=== PATIENT | female | born 1945 | race Caucasian/White ===

== ENCOUNTER 2017-09-22 04:54 | Inpatient (IN) | payer OTHER ==
[2017-09-03 12:49] VITALS: BMI 29.0
--- NOTE | 2017-09-03 13:19 | PAT Medication Instructions ---
Service Date Sep 03, 2017. Current Home Medication List Albuterol Hfa (Ventolin Hfa), Unknown Dose INH UD PRN for ASTHMA Ascorbic Acid (Vitamin C), 1 TAB PO QAM Aspirin (Aspir-81), 1 TAB PO HS Cholecalciferol (Vitamin D3), 5,000 INTERUNIT PO QAM Citalopram Hydrobromide (Citalopram Hydrobromide), 10 MG PO HS Coenzyme Q10 (Ubidecarenone) (Co Q-10), 1 TAB PO QAM Cyanocobalamin (Vitamin B-12), 2,500 MCG SL 5XWK Diltiazem Hcl Ext Rel (Tiazac), 240 MG PO HS Dtduoaflczs-Cdzfxabaywn-Hkvzuq (Glucosamine Chondroitin M), 2 TAB PO QAM Levothyroxine Sodium (Synthroid), 100 MCG PO QAM Naproxen (Aleve), 220 MG PO QAM Rosuvastatin Calcium (Crestor), 10 MG PO Q2D Tocopheryl Acet,Dl-Alpha (Vitamin E), 200 INTERUNIT PO QAM Vitamin A-Beta Carotene (Vitamin A), 1 TAB PO QAM [Essential Multivit], 1 TAB PO QAM Medication Instructions For Your Scheduled Surgery - Hold the following medications 2 weeks prior to surgery: Tocopheryl Acet,Dl-Alpha (Vitamin E), 200 INTERUNIT PO QAM Yhgoqcvevly-Zmjckytyuae-Csrcqh (Glucosamine Chondroitin M), 2 TAB PO QAM Coenzyme Q10 (Ubidecarenone) (Co Q-10), 1 TAB PO QAM - Hold the following medications 7 days prior to surgery per surgeon's instructions: Naproxen (Aleve), 220 MG PO QAM [Essential Multivit], 1 TAB PO QAM - Hold the following medications the morning of surgery: Ascorbic Acid (Vitamin C), 1 TAB PO QAM Cholecalciferol (Vitamin D3), 5,000 INTERUNIT PO QAM Vitamin A-Beta Carotene (Vitamin A), 1 TAB PO QAM Cyanocobalamin (Vitamin B-12), 2,500 MCG SL 5XWK - Take the following medications the morning of surgery with a sip of water OTHERWISE NOTHING TO EAT OR DRINK AFTER MIDNIGHT: Albuterol Hfa (Ventolin Hfa), Unknown Dose INH UD PRN for ASTHMA (use if needed ; BRING TO HOSPITAL) Levothyroxine Sodium (Synthroid), 100 MCG PO QAM - Take the following medications as scheduled the night before surgery: Albuterol Hfa (Ventolin Hfa), Unknown Dose INH UD PRN for ASTHMA Citalopram Hydrobromide (Citalopram Hydrobromide), 10 MG PO HS Diltiazem Hcl Ext Rel (Tiazac), 240 MG PO HS Aspirin (Aspir-81), 1 TAB PO HS Rosuvastatin Calcium (Crestor), 10 MG PO Q2D If you have any questions please call us at [phone] or [phone] or [phone]
--- NOTE | 2017-09-03 13:57 | DIAGNOSTIC IMAGING REPORT ---
CHEST 2 VIEWS ROUTINE CLINICAL HISTORY: Preoperative chest COMPARISON STUDY: 01/21/2013 FINDINGS: The heart is normal in size. There is aortic tortuosity. There is been failure. No focal pulmonary consolidation. There are no pleural effusions. There is an air-containing retrocardiac opacity consistent with a hiatal hernia.[ IMPRESSION: No active disease in the chest. Electronically signed by: Rajinder Vasquez M.D. 09/03/2017 1:56 PM Dictated Date/Time: 09/03/2017 1:55 PM
[2017-09-03 14:28] LABS: URINE APPEARANCE CLEAR (CLEAR); URINE BILIRUBIN NEG (NEG); URINE COLOR DK YELLOW; URINE EPITHELIAL CELL AUTO 20-30 /lpf (0-5); URINE NITRITE NEG (NEG); URINE SPECIFIC GRAVITY 1.021 (1.000-1.030); UROBILINOGEN NEG (NEG)
[2017-09-03 14:32] LABS: PROTHROMBIN TIME (PATIENT) 10.5 SECONDS (9.0-12.0)
[2017-09-03 14:32] LABS: MANUAL MICROSCOPIC REQUIRED? NO; REVIEW REQ? NO
[2017-09-04 06:11] LABS: ESTIMATED AVERAGE GLUCOSE 117 mg/dl; HA1C FLAG Normal (Normal)
--- NOTE | 2017-09-04 15:16 | HISTORY & PHYSICAL EXAMINATION ---
DATE OF ADMISSION: 09/22/2017 CHIEF COMPLAINT: Right hip pain. HISTORY OF PRESENT ILLNESS: Ms. Thibodeaux is a 72-year-old female with a 1-year history of right hip pain. The patient rates her pain as 6-7/10. She has pain with her daily activities. She has limited standing and walking tolerance. Pain is worse with weightbearing. The patient has had physical therapy and anti-inflammatories without relief. She has failed conservative treatment and is scheduled for right hip replacement. PAST MEDICAL HISTORY: Hypertension, hypercholesterolemia, thyroid disease, asthma/COPD, and acid reflux. She denies heart disease, diabetes or DVT. PAST SURGICAL HISTORY: ORIF of right ankle, tubal ligation, and left FERNANDO. SOCIAL HISTORY: The patient denies alcohol or tobacco use. She lives in a single story home. She lives alone and is retired. FAMILY HISTORY: Negative for DVT. MEDICATIONS: Diltiazem 240 mg daily, aspirin 81 mg daily, levothyroxine 100 mcg daily, Crestor 10 mg every other day, citalopram 20 mg half tablet daily, glucosamine chondroitin, vitamin E, CoQ-10, vitamin C, multivitamin, vitamin D3, vitamin B12, omeprazole 20 mg daily, and Naprosyn 500 mg daily. ALLERGIES: PENICILLIN, CECLOR, BENADRYL, AND SULFA. REVIEW OF SYSTEMS: See HPI. Ten other systems reviewed, all negative. PHYSICAL EXAMINATION: VITAL SIGNS: Height 5 feet 3 inches, weight 170 pounds and BMI is 30. GENERAL: This is a well-developed and well-nourished female, who is alert and oriented x3. Mood and affect are appropriate. HEENT: Normocephalic and atraumatic. Mucous membranes are moist and intact. NECK: Supple without lymphadenopathy. HEART: Regular rate and rhythm without murmurs, rubs or gallops. LUNGS: Clear to auscultation without wheezes or rhonchi. ABDOMEN: Soft and nontender. Bowel sounds are equal and active. EXTREMITIES: No ecchymosis, redness or warmth. Thigh and calf are soft and nontender. Range of motion of the right hip is decreased and reproduces pain in the groin. She is neurovascularly intact with +5/5 strength. She has some moderate tenderness at her trochanteric bursa. Otherwise, neurovascularly intact. X-RAY EXAMINATION: AP views of the pelvis show joint space narrowing and osteophyte formation with cystic formation of the right hip. IMPRESSION: Degenerative joint disease, right hip. PLAN: The patient will be admitted for a right total hip arthroplasty. We will plan on aspirin for DVT prophylaxis. The patient is requesting a late morning surgery time. She is going to use [facility] for home physical therapy. KONG
[~2017-09-22] VITALS: Ht 160 cm; Wt 76.4 kg
[2017-09-22] VITALS (10 sets, daily range): BP systolic 108–145; BP diastolic 62–87; PULSE 67–98; TEMP 36.4–36.9; O2SAT 93–100; Ht 160 cm; Wt 76.4 kg
[~2017-09-22 04:54] MED LIST: ASCO500T3 PO; ASPI-232 PO; CHOL1000 PO; CITA20TA4 PO; COEN100C3 PO; CYAN10005 SL; DILT-115 PO; GLUCTAB54 PO; LEVO100T PO; NAPR1TAB9 PO; ROSU5TAB PO; VITATAB19 PO; VNTHFA/IN INH; VTME100 PO; [UNRECOGNIZED DRUG - OTHER] PO
[2017-09-22] MEDS ORDERED: DEXAMETHASONE 4 MG TAB PO SCH (06:00)
[2017-09-22] MEDS ORDERED: LACTATED RINGER'S 1000ML IV SCH (06:00)
[2017-09-22] MEDS ORDERED: CLINDAMYCIN 600 MG/54 ML D5W IV SCH (06:00)
[2017-09-22] MEDS ORDERED: LACTATED RINGER'S 1000ML 1,000 ML IV SCH (06:00)
[2017-09-22] MEDS ORDERED: METOCLOPRAMIDE HCL 10 MG TAB PO SCH (06:00)
[2017-09-22] MEDS ORDERED: FAMOTIDINE 20 MG TAB PO SCH (06:00)
[2017-09-22] MEDS ORDERED: ACETAMINOPHEN 500 MG TAB PO SCH (06:00)
[2017-09-22] MEDS ORDERED: ROPIVACAINE 5MG/ML 30 ML 150 MG, BUPIVACAINE 0.5% MPF INJ 30 ML, EpINEphrine HCL INJ 0.... INFIL SCH ×8 (06:00)
[2017-09-22] MEDS ORDERED: LACTATED RINGER'S 1000ML 500 ML IV ONE (06:00)
[2017-09-22] MEDS ORDERED: GABAPENTIN 300 MG CAP PO SCH (06:00)
[2017-09-22] MEDS: TRANEXAMIC ACID INJ 1,000 MG in SYRINGE 0 ML IV SCH ×2 (06:30→06:42)
[2017-09-22] MEDS ORDERED: BUPIVACAINE 0.5 % 5 MG/1 ML PF 10ML VIAL ONE (06:35)
[2017-09-22] MEDS ORDERED: MIDAZOLAM HCL 1 MG/ML 2ML VIAL ONE (06:41)
[2017-09-22] MEDS ORDERED: PROPOFOL IV EMULSION 10 MG/ML 20 ML VIAL IV ONE ×2 (06:41→07:25)
[2017-09-22] MEDS ORDERED: LIDOCAINE HCL 2% 2 ML VIAL (20MG/ML) ONE (06:41)
[2017-09-22] MEDS ORDERED: FENTANYL CITRATE INJ 50 MCG/1 ML 2 ML VIAL ONE (06:41)
[2017-09-22] MEDS ORDERED: ONDANSETRON INJ 2 MG/ML 2 ML VIAL ONE (06:41)
[2017-09-22] MEDS ORDERED: BACITRACIN 50000 UNIT VIAL ONE (06:55)
[2017-09-22] MEDS ORDERED: ORTHO JOINT ANESTHETIC ONE (06:55)
[2017-09-22] MEDS ORDERED: POVIDONE-IODINE OP SOLN 30 ML BTL ONE (06:55)
--- NOTE | 2017-09-22 07:01 | History & Physical Bridge Note ---
H&P Re-Evaluation Bridge Note: I have examined the patient, reviewed the History & Physical and in the interval since the performance of the History & Physical I have noted the following changes of clinical significance: No changes noted
[2017-09-22] MEDS ORDERED: EpHEDrine SULFATE 50MG/5ML SYR ONE (07:25)
[2017-09-22] MEDS ORDERED: ONDANSETRON INJ 2 MG/ML 2 ML VIAL IV PRN ×2 (07:30→08:30)
[2017-09-22] MEDS ORDERED: ATROPINE SULFATE 0.1 MG/ML 5ML SYR IV PRN (07:30)
[2017-09-22] MEDS ORDERED: EpHEDrine SULFATE INJ 50 MG/ML AMP IV PRN (07:30)
[2017-09-22] MEDS ORDERED: PHENYLEPHRINE 100MCG/ML 5ML SYR ONE (07:38)
--- NOTE | 2017-09-22 07:49 | [facility] Post Operative Brief Note ---
Immediate Operative Summary Operative Date Sep 22, 2017. Pre-Operative Diagnosis Degenerative Joint Disease, Right Hip Post-Operative Diagnosis Degenerative Joint Disease, Right Hip Procedure(s) Performed Right Total Hip Arthroplasty Uncemented Surgeon Dr Mendez Child Development Professor Surgeon(s) Gino Franco PA-C Estimated Blood Loss 100cc Findings oa Specimens As Per Surgeon A. Femoral Head Complication(s) None Disposition Recovery Room / PACU
--- NOTE | 2017-09-22 08:06 | OPERATIVE REPORT ---
DATE OF OPERATION: 09/22/2017 PREOPERATIVE DIAGNOSIS: Osteoarthritis, right hip. POSTOPERATIVE DIAGNOSIS: Osteoarthritis, right hip. PROCEDURE: Right connective total hip arthroplasty. SURGEON: Dr. Mendez. CHARTER REPRESENTATIVE: YOLIS Gonzalez ANESTHESIA: Spinal. COMPLICATIONS: None. IMPLANTS USED: Acetabular reamer used 50, acetabular shell 50, femoral stem 5, and femoral head -5. OPERATION AND FINDINGS: PROCEDURE: Following induction of adequate spinal anesthesia, the patient was placed in left lateral decubitus position and a right Carlos-Langenbeck incision was made. Subcutaneous tissue was sharply dissected. Electrocautery used for hemostasis. The fascia was incised throughout the length of the wound and a mojica scissor placed beneath the short external rotators. The pyriformis was tagged with #1 Vicryl. The short external rotators were divided from the posterior aspect of the femur using electrocautery. These were swept posteriorly. A T-capsulotomy incision was made and the hip was dislocated using a combination of flexion, adduction, and internal rotation. Exposure of the femoral neck with old-style Hohmann and a blunt Hohmann was carried out and a femoral rasp was utilized as a guide for making the appropriate level femoral neck cut. This bone fragment was removed and reserved on the back table. Next, attention was turned to the acetabulum where bone hook was used to retract the femur while the offset retractors were placed anterior and posteriorly. A double-angled Hohmann was placed in superior and anterior position exposing the acetabulum nicely. Acetabular labrum as well as posterior capsule elements were removed using a long knife and a long pickup. Fovea centralis was cleared of all soft tissue. Sequential reamings were carried up to a 50 and decision was made to proceed with impaction of a 50 trabecular metal cup. This was impacted and held using a single 35 mm bone screw. The acetabular liner was placed with 15 of elevated posterior wall in the superior and posterior position. Next, attention was turned to the femoral portion of the case where a Bovie and pickup was used to further clear short external rotators from their insertion on the femur. Box osteotome was used to gain access to the femoral canal and the T-handled rasp and a rattail rasp were used to further open and lateral the canal. Sequentially raspings were carried up to a 5, which gave good fit and fill of the proximal femur. A trial reduction was carried out and a 132 degree femoral neck component was chosen as the size to be used. A -5 mm femoral head was impacted into position, +0 head was utilized. The trial reduction was stable in all degrees of rotation with no [id number] impingement. The hip was dislocated. The trial components were removed and the final femoral stem, neck, and femoral head combination were assembled on the back table and impacted into position. Hip was relocated. Range of motion checked once again successful and the wound was irrigated. The pyriformis repaired to the greater trochanter using #1 Vicryl [id number] suture. A Hemovac drain was placed and the fascia was closed using #1 Vicryl, subcutaneous tissue was closed using 0 Dexon, and skin was closed with alex. Sterile dressing of Adaptic, 4 x 4's, ABDs, and foam tape was applied. The patient tolerated the procedure well. Due to the complex nature of the procedure, the entire surgery was performed with the operational assistance of YOLIS Gonzalez. The surgeon's assistant, under direct supervision, was involved in the actual performance of all aspects of the surgical procedure including hemostasis, tissue retraction and incision, instrument management, patient positioning, and wound closure. DISPOSITION: Recovery room, stable. I attest to the content of the Intraoperative Record and any orders documented therein. Any exception s are noted below.
[2017-09-22] MEDS ORDERED: ALBUTEROL HFA 8 GM INHALER INH PRN (08:30)
[2017-09-22] MEDS ORDERED: MAGNESIUM HYDROXIDE SUSP 30 ML UDC PO PRN (08:30)
[2017-09-22] MEDS ORDERED: MoRPHine SULFATE 4 MG/ML 1 ML CARP\\VIAL IV PRN (08:30)
[2017-09-22] MEDS ORDERED: BISACODYL 10 MG SUPP PR PRN (08:30)
[2017-09-22] MEDS ORDERED: ALUMINUM/MAGNESIUM/SIMETH (MAALOX MAX) 30 ML UDC PO PRN (08:30)
[2017-09-22] MEDS ORDERED: OXYCODONE HCL IR 5 MG TAB (IMMEDIATE RELEASE) PO PRN (08:30)
[2017-09-22] MEDS ORDERED: MoRPHine SULFATE 2 MG/ML CARP IV PRN (08:30)
--- NOTE | 2017-09-22 08:56 | DIAGNOSTIC IMAGING REPORT ---
AP PELVIS, CROSSTABLE LATERAL RIGHT HIP History: Right total hip arthroplasty. Degenerative arthritis. Postop. FINDINGS: The patient is status post a right total hip arthroplasty. The hardware is intact. No fracture or dislocation. Surgical drains are in place. Prior left total hip arthroplasty. IMPRESSION: Right total hip arthroplasty. No evidence for hardware complication Electronically signed by: Maciej Nelson M.D. 09/22/2017 8:55 AM Dictated Date/Time: 09/22/2017 8:54 AM
[2017-09-22] MEDS ORDERED: NON-FORMULARY MEDICATION (Coenzyme Q10 (Ubidecarenone) (Co Q-10) 1 TAB) PO SCH (09:00)
--- NOTE | 2017-09-22 09:04 | Anesthesiology Progress Note ---
Anesthesia Post Op Note Date & Time Sep 22, 2017 at 09:04 Vital Signs Pain Intensity: 0 Vital Signs Past 12 Hours Date Time Temp Pulse Resp B/P (MAP) Pulse Ox O2 Delivery O2 Flow Rate FiO2 09/22/17 08:57 37.0 09/22/17 08:52 68 18 09/22/17 08:52 64 18 97 09/22/17 08:51 121/65 09/22/17 08:47 74 19 09/22/17 08:47 74 19 95 09/22/17 08:46 118/65 09/22/17 08:44 77 16 09/22/17 08:44 77 16 95 09/22/17 08:41 125/71 09/22/17 08:39 71 15 09/22/17 08:39 71 15 98 09/22/17 08:36 97/59 09/22/17 08:34 74 25 09/22/17 08:34 73 25 99 09/22/17 08:33 70 16 09/22/17 08:33 69 16 98 09/22/17 08:31 117/57 09/22/17 08:28 74 15 96 09/22/17 08:28 74 15 09/22/17 08:26 112/59 09/22/17 08:23 74 18 99 09/22/17 08:23 73 18 09/22/17 08:21 108/58 09/22/17 08:19 100/53 09/22/17 08:18 36.8 75 16 100/53 98 Oxymask 10 09/22/17 08:18 73 17 09/22/17 08:18 72 17 93 09/22/17 05:34 36.5 67 20 145/87 93 Room Air Notes Mental Status: alert / awake / arousable, participated in evaluation Pt Amnestic to Procedure: Yes Nausea / Vomiting: adequately controlled Pain: adequately controlled Airway Patency, RR, SpO2: stable & adequate BP & HR: stable & adequate Hydration State: stable & adequate Neuraxial Anesthesia: was administered, sensory block is resolving Anesthetic Complications: no major complications apparent
[2017-09-22] MEDS: D5W AND 1/2NSS + 20MEQ KCL 1,000 ML IV SCH ×2 (10:06→19:59)
[2017-09-22] MEDS: FERROUS GLUCONATE 324 MG TAB PO SCH ×2 (12:37→18:36)
[2017-09-22] MEDS: ACETAMINOPHEN 500 MG TAB PO SCH ×2 (13:39→21:52)
[2017-09-22] MEDS: CLINDAMYCIN IV 600 MG in DEXTROSE 5% 50ML 50 ML IV SCH ×2 (15:54→23:31)
[2017-09-22] MEDS: TRAMADOL HCL 50 MG TAB PO PRN (18:36)
[2017-09-22] MEDS ORDERED: ROSUVASTATIN CALCIUM 10 MG TAB PO SCH (21:00)
[2017-09-22] MEDS: DILTIAZEM HCL 120 MG EXT REL CAP PO SCH (21:16)
[2017-09-22] MEDS: SENNA 8.6 MG TAB PO SCH (21:16)
[2017-09-22] MEDS: DOCUSATE SODIUM 100 MG CAP PO SCH (21:16)
[2017-09-22] MEDS: ASPIRIN 81 MG ECTAB PO SCH (21:16)
[2017-09-22] MEDS: CITALOPRAM 20 MG TAB PO SCH (21:16)
[2017-09-23] VITALS (7 sets, daily range): BP systolic 109–153; BP diastolic 62–92; PULSE 58–89; TEMP 36.5–36.8; O2SAT 95–97
[2017-09-23] MEDS: D5W AND 1/2NSS + 20MEQ KCL 1,000 ML IV SCH (05:26)
[2017-09-23] MEDS: TRAMADOL HCL 50 MG TAB PO PRN ×4 (05:31→22:14)
[2017-09-23] MEDS: LEVOTHYROXINE 100 MCG TAB PO SCH (05:39)
[2017-09-23] MEDS: ACETAMINOPHEN 500 MG TAB PO SCH ×3 (05:39→22:16)
[2017-09-23 06:52] LABS: COMPLETE YES; HEMATOCRIT 36.9 % (37-47); IG% 0.2 %; LYMPH % 8.4 %; LYMPH ABS # 1.19 K/uL (1.2-3.4); MEAN CELL VOLUME 92.5 fL (80-100); MEAN CORPUSCULAR HEMOGLOBIN 31.3 pg (25-34); MEAN CORPUSCULAR HGB CONC 33.9 g/dl (32-36); MEAN PLATELET VOLUME 9.7 fL (7.4-10.4); MONO % 10.8 %; NEUT % 80.6 %; PLATELET COUNT 193 K/uL (130-400); RED BLOOD COUNT 3.99 M/uL (4.2-5.4); WHITE BLOOD COUNT 14.21 K/uL (4.8-10.8)
[2017-09-23 07:28] LABS: BUN/CREATININE RATIO 15.8 (10-20); CALCIUM 8.3 mg/dl (8.5-10.1); CREATININE 0.66 mg/dl (0.60-1.20); POTASSIUM 4.4 mmol/L (3.5-5.1)
--- NOTE | 2017-09-23 07:43 | Orthopedic Progress Note ---
Orthopedic Progress Note Date of Service Sep 23, 2017. Subjective Post OP Day: 1 Reports: feeling well, Denies: chest pain, SOB, nausea / vomiting, light headedness, calf pain Objective calves soft nontender, N/V intact, hip located, capillary refill less than 2 sec., dressing C/D/I, A&O x3, toes mobile, hemovac drainage (180/35cc per shift) Date Time Temp Pulse Resp B/P (MAP) Pulse Ox O2 Delivery O2 Flow Rate FiO2 09/23/17 06:57 36.8 58 18 109/62 (78) 96 Room Air 09/23/17 03:20 36.6 89 18 128/76 (93) 96 Room Air 09/22/17 23:30 Room Air 09/22/17 22:55 36.9 96 16 129/78 (95) 95 Room Air 09/22/17 21:00 98 142/80 (100) 09/22/17 20:25 36.9 93 16 121/74 (90) 97 Room Air 09/22/17 15:37 36.9 81 17 113/65 (81) 95 Room Air 09/22/17 15:15 Room Air 09/22/17 12:06 36.7 85 19 113/65 (81) 98 Nasal Cannula 2.0 09/22/17 11:15 36.7 85 19 108/62 (77) 98 Nasal Cannula 2.0 09/22/17 10:14 36.6 74 18 111/67 (82) 98 Nasal Cannula 2.0 09/22/17 09:52 100 Nasal Cannula 2.0 09/22/17 09:44 36.4 73 19 116/67 (83) 99 Nasal Cannula 2.0 09/22/17 09:15 36.5 78 16 111/67 (82) 100 Nasal Cannula 2.0 09/22/17 09:15 100 Nasal Cannula 2.0 09/22/17 09:03 79 16 09/22/17 09:03 76 16 99 09/22/17 09:01 119/79 09/22/17 08:58 82 19 09/22/17 08:58 87 19 92 09/22/17 08:57 37.0 09/22/17 08:56 108/65 09/22/17 08:53 76 17 95 09/22/17 08:53 75 17 09/22/17 08:52 68 18 09/22/17 08:52 64 18 97 09/22/17 08:51 121/65 09/22/17 08:47 74 19 09/22/17 08:47 74 19 95 09/22/17 08:46 118/65 09/22/17 08:44 77 16 09/22/17 08:44 77 16 95 09/22/17 08:41 125/71 09/22/17 08:39 71 15 09/22/17 08:39 71 15 98 09/22/17 08:36 97/59 09/22/17 08:34 74 25 09/22/17 08:34 73 25 99 09/22/17 08:33 70 16 09/22/17 08:33 69 16 98 09/22/17 08:31 117/57 09/22/17 08:28 74 15 96 09/22/17 08:28 74 15 09/22/17 08:26 112/59 09/22/17 08:23 74 18 99 09/22/17 08:23 73 18 09/22/17 08:21 108/58 09/22/17 08:19 100/53 09/22/17 08:18 36.8 75 16 100/53 98 Oxymask 10 09/22/17 08:18 73 17 09/22/17 08:18 72 17 93 Laboratory Results 24 Hours: Test 09/23/17 06:28 White Blood Count 14.21 K/uL Red Blood Count 3.99 M/uL Hemoglobin 12.5 g/dL Hematocrit 36.9 % Mean Corpuscular Volume 92.5 fL Mean Corpuscular Hemoglobin 31.3 pg Mean Corpuscular Hemoglobin Concent 33.9 g/dl Platelet Count 193 K/uL Mean Platelet Volume 9.7 fL Neutrophils (%) (Auto) 80.6 % Lymphocytes (%) (Auto) 8.4 % Monocytes (%) (Auto) 10.8 % Eosinophils (%) (Auto) 0.0 % Basophils (%) (Auto) 0.0 % Neutrophils # (Auto) 11.45 K/uL Lymphocytes # (Auto) 1.19 K/uL Monocytes # (Auto) 1.54 K/uL Eosinophils # (Auto) 0.00 K/uL Basophils # (Auto) 0.00 K/uL Assessment & Plan Assessment: POD#1 sp right FERNADNO Plan: PT/OT DVT proph- ASA 81mg bid Pain management- Amber, TYlenol DC planning- DC Weds with HH
--- NOTE | 2017-09-23 07:45 | Discharge Instructions ---
Discharge Instructions Date of Service Sep 23, 2017. Admission Reason for Admission: Right Hip Osteoarthritis Discharge Discharge Diagnosis / Problem: sp right FERNANDO Discharge Goals Goal(s): Decrease discomfort, Improve function, Increase independence Activity Recommendations Activity Limitations: per Instructions/Follow-up section . Instructions / Follow-Up Instructions / Follow-Up ACTIVITY RECOMMENDATIONS: SELF CARE INSTRUCTIONS AFTER TOTAL HIP REPLACEMENT Until the incision and soft tissues around your hip have healed, there is a possibility that the hip prosthesis could dislocate. A. Observe the following precautions to prevent dislocation: 1. Don't bend your hip greater than 90 degrees. 2. Avoid crossing your legs or ankles while standing or lying. 3. Sit with your feet placed 6 inches apart. 4. When sitting, keep your knees below your hips. Sit on a firm surface, avoid deep, soft chairs and couches. Use an elevated toilet seat in the bathroom. 5. Don't bend over at the waist. Use a long handled shoehorn and a sock aid to help you put on your shoes and socks. A distance education director can help you cook pickled meat objects that are too high or too low to reach. 6. Keep car riding to a minimum for at least one month after surgery. B. Your balance may be shaky for a while. Use crutches or a walker until directed by your doctor. C. Use hand rails when walking on stairs. D. Wear low heeled shoes with non-slip soles. E. Be sure that your floors are free of things that could trip you - throw rugs , electrical cords, small objects. Avoid wet and waxed floors, especially with crutches and canes. F. Try to walk several times a day with rest periods between. G. Continue with all the exercises taught to you in the hospital. Again, make walking a part of your daily routine. SPECIAL CARE INSTRUCTIONS: VERY IMPORTANT TO READ AND REVIEW A. You may still be at risk for phlebitis and blood clots. 1. Wear surgical stockings (KG hose) for 2 weeks after surgery to improve circulation and reduce swelling. 2. Take Aspirin 81mg twice daily for 4 weeks or as directed by your doctor. This is your blood thinner. 3. High risk patients may be prescribed a stronger blood thinner if necessary. 4. If you are on Coumadin normally, your family doctor/informatics specialist should monitor your blood work. Expect a phone call the day of or the day after bloodwork is drawn to adjust your dosage. B. You must take antibiotics before having dental work, bladder, bowel and other surgery. Your doctor will provide you with a permanent card to carry describing precautions. C. Call [facility] if you have a fever, redness or swelling around the incision, cloudy drainage from incision, or sudden increase in pain in your hip, not relieved by your regular pain medication. D. Please call the office at if you have any concerns or questions about your operation or recovery. * YOU MAY SHOWER, NO TUB BATHS UNTIL CLEARED BY YOUR DOCTOR. * WEAR KG HOSE 20 HOURS PER DAY FOR 2 WEEKS. * YOU SHOULD USE A WALKER OR CRUTCHES FOR 2-4 WEEKS. THIS WILL HELP PREVENT STRAIN ON YOUR HIP MUSCLE AND ALLOW IT TO HEAL PROPERLY. YOU MAY WEAN TO A CANE TOLERATED. * MOST PATIENTS WILL HAVE HOME NURSING FOR THERAPY. IF YOU DECIDE TO DO OUTPATIENT PHYSICAL THERAPY, PLEASE SCHEDULE THIS 3 TIMES PER WEEK. * YOU HAVE A ZIPLINE CLOSURE. THIS IS IN PLACE OF [place]UI[place]. DO NOT REMOVE. YOU MAY KEEP IT COVERED WITH A LIGHT DRESSING TO PREVENT SNAGGING. YOU MAY SHOWER. THIS WILL BE REMOVED AT YOUR 2 WEEK POST OP VISIT. FOLLOW UP VISIT: If appointment is not already scheduled: Please call [facility] to make a follow-up appointment for 2 weeks after your surgery at . Current Hospital Diet Patient's current hospital diet: Regular Diet Discharge Diet Recommended Diet: Regular Diet Procedures Procedures Performed: Right Total Hip Arthroplasty Uncemented Pending Studies Studies pending at discharge: no Laboratory Results Hemoglobin A1c Test 09/03/17 13:36 Range/Units Estimated Average Glucose 117 mg/dl Hemoglobin A1c 5.7 H 4.5-5.6 % Medical Emergencies . Who to Call and When: Medical Emergencies: If at any time you feel your situation is an emergency, please call 911 immediately. . Non-Emergent Contact Non-Emergency issues call your: Surgeon . "Provider Documentation" section prepared by Faviola Alexander. . VTE Core Measure Inpt VTE Proph given/why not?: Other Anticoagulation, T.E.D. Stockings, SCD's [place] Drug Monitoring Program Search Results: patient reviewed within database, no issues identified
--- NOTE | 2017-09-23 07:53 | Anesthesiology Progress Note ---
Anesthesia Post Op Note Date & Time Sep 23, 2017 at 07:52 Vital Signs Pain Intensity: 5.0 Vital Signs Past 12 Hours Date Time Temp Pulse Resp B/P (MAP) Pulse Ox O2 Delivery O2 Flow Rate FiO2 09/23/17 06:57 36.8 58 18 109/62 (78) 96 Room Air 09/23/17 03:20 36.6 89 18 128/76 (93) 96 Room Air 09/22/17 23:30 Room Air 09/22/17 22:55 36.9 96 16 129/78 (95) 95 Room Air 09/22/17 21:00 98 142/80 (100) 09/22/17 20:25 36.9 93 16 121/74 (90) 97 Room Air Notes Mental Status: alert / awake / arousable, participated in evaluation Pt Amnestic to Procedure: Yes Nausea / Vomiting: adequately controlled Pain: adequately controlled Airway Patency, RR, SpO2: stable & adequate BP & HR: stable & adequate Hydration State: stable & adequate Neuraxial Anesthesia: sensory block resolved Anesthetic Complications: no major complications apparent
[2017-09-23] MEDS: FERROUS GLUCONATE 324 MG TAB PO SCH ×3 (08:52→17:59)
[2017-09-23] MEDS: DOCUSATE SODIUM 100 MG CAP PO SCH ×2 (08:53→22:15)
[2017-09-23] MEDS: ASPIRIN 81 MG ECTAB PO SCH ×2 (09:46→22:15)
[2017-09-23] MEDS: MULTIVITAMIN TAB PO SCH (09:46)
[2017-09-23] MEDS: PANTOprazole SOD 40 MG TAB PO SCH (09:46)
[2017-09-23] MEDS: CITALOPRAM 20 MG TAB PO SCH (22:15)
[2017-09-23] MEDS: SENNA 8.6 MG TAB PO SCH (22:15)
[2017-09-23] MEDS: DILTIAZEM HCL 120 MG EXT REL CAP PO SCH (22:15)
[2017-09-24] MEDS: LEVOTHYROXINE 100 MCG TAB PO SCH (05:41)
[2017-09-24] MEDS: ACETAMINOPHEN 500 MG TAB PO SCH (05:42)
--- NOTE | 2017-09-24 07:15 | Orthopedic Progress Note ---
Orthopedic Progress Note Date of Service Sep 24, 2017. Subjective Post OP Day: 2 Reports: feeling well, Denies: chest pain, SOB, nausea / vomiting, light headedness, calf pain Additional Notes: Patient states she's feeling better today as far as pain control. Would like to go home today. No new complaints. Objective calves soft nontender, N/V intact, hip located, incision C/D/I, A&O x3, toes mobile Date Time Temp Pulse Resp B/P (MAP) Pulse Ox O2 Delivery O2 Flow Rate FiO2 09/24/17 00:42 Room Air 09/23/17 22:45 36.8 80 16 148/84 (105) 97 Room Air 09/23/17 22:15 76 153/92 (112) 09/23/17 19:50 Room Air 09/23/17 15:40 36.5 67 16 125/72 (89) 96 Room Air 09/23/17 11:13 36.8 59 18 113/71 (85) 95 Room Air 09/23/17 10:26 64 96 09/23/17 07:30 Room Air Assessment & Plan Assessment: POD#2 sp right FERNANDO Plan: PT/OT DVT proph- ASA 81mg bid Pain management- Amber, TYlenol DC planning- DC today with
[2017-09-24] MEDS ORDERED: RXC5 PO (07:19)
[2017-09-24] MEDS ORDERED: ASPI-232 PO (07:19)
[2017-09-24] MEDS ORDERED: ACET-24 PO (07:19)
[2017-09-24] MEDS ORDERED: SENN1TAB80 PO (07:19)
[2017-09-24 07:40] VITALS: BP 138/84; PULSE 73; TEMP 36.8; O2SAT 94
[2017-09-24 08:15] VITALS: O2SAT 94
[2017-09-24] MEDS: DOCUSATE SODIUM 100 MG CAP PO SCH (08:27)
[2017-09-24] MEDS: MULTIVITAMIN TAB PO SCH (08:27)
[2017-09-24] MEDS: FERROUS GLUCONATE 324 MG TAB PO SCH (08:27)
[2017-09-24] MEDS: ASPIRIN 81 MG ECTAB PO SCH (08:27)
[2017-09-24] MEDS: PANTOprazole SOD 40 MG TAB PO SCH (08:27)
[2017-09-24] MEDS: TRAMADOL HCL 50 MG TAB PO PRN (08:32)
[2017-09-24 09:42] VITALS: BP 138/84; PULSE 73; TEMP 36.8; O2SAT 94
--- NOTE | 2017-09-29 12:38 | DISCHARGE SUMMARY ---
DISCHARGE DIAGNOSIS: Degenerative joint disease, right hip. SECONDARY DIAGNOSES: Hypertension, hypercholesterolemia, thyroid disease, asthma, chronic obstructive pulmonary disease, and gastroesophageal reflux disease. CONSULTS: None. COMPLICATIONS: None. PROCEDURE: Right total hip arthroplasty performed by Dr. Mendez on 09/22/2017. BRIEF HISTORY: As dictated in the history and physical. HOSPITAL SUMMARY: The patient was admitted on the above date and had the above-noted surgery performed, which she tolerated well. On the first postoperative day, she was feeling well and had no complaints. Calves were soft and nontender. Neurovascularly intact. Hip was located. Dressings clean, dry and intact. Toes were mobile. Vital signs were stable. She was afebrile and hemoglobin was 12.5. She was started on physical therapy protocol and continued on DVT prophylaxis and pain management. By her second postoperative day, she was feeling well and stated that she was feeling better that day as far as pain control and would like to go home. She had no new complaints. Calves were soft and nontender. Neurovascularly intact. Hip was located. Incision was benign. Vital signs were stable and it was felt that she could be discharged to home with home health services on 09/24/2017. For further review, please see chart. LAB AND X-RAY DATA: As per chart. DISCHARGE INSTRUCTIONS: The patient was discharged to home in satisfactory condition on 09/24/2017. DIET: Regular. ACTIVITY: Follow FERNANDO instruction sheets and special care instructions as noted and follow up with Dr. Mendez in 2 weeks. The patient is to call for an appointment if one has not been made for you. DISCHARGE MEDICATIONS: Acetaminophen 1000 mg p.o. q. 8 hours for 21 days, oxycodone 5-10 mg p.o. q. 4 hours p.r.n., senna laxative 17.2 mg p.o. at bedtime, aspirin 81 mg p.o. b.i.d. for 30 days and after 30 days, resume once daily dosing. Resume home meds as listed and stop taking naproxen.
== END 2017-09-24 11:27 | disposition home health service (06) | DRG 470 ==
LOC: C.ACU 04:54 → C.3E 06:48 → ENRESERV 08:47
PROC: 0SR901Z Replacement of Right Hip Joint with Metal Synthetic Substitute, Open Approach (ICD-10-PCS; principal; 2017-09-22 07:00)
DX: M16.11 Unilateral primary osteoarthritis, right hip (principal); Z88.0 Allergy status to penicillin; Z88.2 Allergy status to sulfonamides; Z79.82 Long term (current) use of aspirin; I10 Essential (primary) hypertension; E78.00 Pure hypercholesterolemia, unspecified; E07.9 Disorder of thyroid, unspecified; J44.9 Chronic obstructive pulmonary disease, unspecified; K21.9 Gastro-esophageal reflux disease without esophagitis